=== PATIENT | female | born 1990 | race Caucasian/White ===

== ENCOUNTER → 2022-02-17 14:46 | Outpatient (CLI) | payer OTHER, SELFPAY | PROVIDERS: Referring Provider Internal Medicine; Visit Provider Internal Medicine | DX: Z23 Encounter for immunization (principal) | CPT/HCPCS: 90471; 90686 ==

== ENCOUNTER → 2023-03-19 11:00 | Outpatient (CLI) | payer OTHER, SELFPAY | PROVIDERS: Referring Provider Family Medicine; Visit Provider Family Medicine | DX: Z23 Encounter for immunization (principal) | CPT/HCPCS: 90471; 90686 ==

== ENCOUNTER → 2024-10-07 11:52 | Outpatient (CLI) | payer OTHER, SELFPAY ==
--- NOTE | 2024-10-07 11:57 | DI.US.S_ITS ---
PROCEDURE: US PELVIC COMPLETE INDICATIONS: Irregular Menstruation TECHNIQUE: Real-time scanning was performed of the pelvic organs, with image documentation. Additional endovaginal scanning was necessary due to incomplete visualization of the adnexal and endometrial structures by transabdominal scanning. Fifty images and 6 cine series COMPARISON: None. FINDINGS: Uterus: Uterus is anteverted and normal in size at 5.6 x 3.2 x 2.7 cm. The myometrium is heterogeneous. The endometrium measures up to approximately 10 mm combined thickness. Possible 1.0 cm right mid intramural leiomyoma versus endometrial polyp or other lesion. Some images also demonstrate possible bicornuate uterus versus artifact. CT or MRI female pelvis may be useful for further evaluation. Ovaries: The right ovary measures 1.8 x 1.1 x 1.0 cm, with a calculated ovarian volume of 1.0 cc. The left ovary measures 2.5 x 1.2 x 0.9 cm, with a calculated ovarian volume of 1.3 cc. The ovaries have a normal sonographic appearance. Less than 12 follicles can be seen in each ovary. No gross ultrasound evidence of adnexal mass. Other: No pathologic free abdominal or pelvic fluid. IMPRESSION: Heterogeneous uterus is nonspecific may be related to adenomyosis, leiomyomas or other process as discussed above. We strive to produce accurate, complete, and clear reports of imaging services. To assist us in improving patient care, this report was composed using standard report templates and voice recognition software. Therefore, it may contain abnormal punctuation, insertions and/or omissions. Occasional wrong-word or sound-alike substitutions may occur. Though we review the report and make efforts to correct it, we do recommend that the report be read carefully in proper context to recognize any text inaccuracies. Dictated by: Alessandro Martinez M.D. on 10/08/2024 at 13:31 Approved by: Alessandro Martinez M.D. on 10/08/2024 at 13:40
== END ==
LOC: US 11:54
PROVIDERS: PCP Specialist; Referring Provider Specialist; Visit Provider Specialist
DX: E28.2 Polycystic ovarian syndrome (principal); N92.6 Irregular menstruation, unspecified; R10.30 Lower abdominal pain, unspecified
CPT/HCPCS: 76830; 76856

== ENCOUNTER → 2025-03-25 14:11 | Outpatient (CLI) | payer OTHER, SELFPAY | PROVIDERS: PCP Specialist; Visit Provider Nurse Practitioner Family | DX: L08.9 Local infection of the skin and subcutaneous tissue, unspecified (principal) | CPT/HCPCS: 87070; 87075; 87077; 87147; 87205 ==